=== PATIENT | male | born 1990 | race Two or more races ===

== ENCOUNTER 2018-07-29 07:04 | Emergency (ER) | payer MEDICAID, OTHER ==
[~2018-07-29] VITALS: Ht 170.2 cm; Wt 84.4 kg
[2018-07-29 07:48] VITALS: BP 123/79
[2018-07-29 08:14] LABS: Urine Bacteria NONE SEEN /hpf (None Seen); Urine Blood Negative /uL (Negative); Urine Mucus FEW (None Seen); Urine Specific Gravity 1.023 (1.001-1.035); Urine WBC <1 /hpf (0 - 3)
== END 2018-07-29 08:26 | disposition home or self-care (01) ==
LOC: ER 07:04
DX: R36.1 Hematospermia (principal); F17.210 Nicotine dependence, cigarettes, uncomplicated
CPT/HCPCS: 81001